=== PATIENT | female | born 1945 | race Caucasian/White ===

== ENCOUNTER 2023-10-27 13:28 | Outpatient (RCR) | payer MEDICARE, SELFPAY | END 2023-10-27 23:59 | disposition home or self-care (01) | LOC: ROT 13:28 | PROVIDERS: ATTENDING PHYSICIAN Psychiatry & Neurology Neurology; FAMILY PHYSICIAN Internal Medicine | DX: G31.84 Mild cognitive impairment of uncertain or unknown etiology (principal) | CPT/HCPCS: 96125; 97167 ==

== ENCOUNTER 2023-11-16 08:10 | Outpatient (RCR) | payer MEDICARE, SELFPAY | END 2023-11-16 23:59 | disposition home or self-care (01) | LOC: ROT 08:10 | PROVIDERS: ATTENDING PHYSICIAN Psychiatry & Neurology Neurology; FAMILY PHYSICIAN Internal Medicine | DX: R41.89 Other symptoms and signs involving cognitive functions and awareness (principal); Z73.6 Limitation of activities due to disability | CPT/HCPCS: 97129; 97130; 97530; 97535 ==

== ENCOUNTER → 2023-12-14 13:58 | Outpatient (REF) | payer MEDICARE, SELFPAY | LOC: RCS 13:58 | PROVIDERS: ATTENDING PHYSICIAN Internal Medicine Cardiovascular Disease; FAMILY PHYSICIAN Internal Medicine; REFERRING PHYSICIAN Psychiatry & Neurology Neurology | DX: R55 Syncope and collapse (principal); G30.9 Alzheimer's disease, unspecified | CPT/HCPCS: 36415; 93306 ==

== ENCOUNTER 2023-12-17 06:40 | Outpatient (RCR) | payer MEDICARE, SELFPAY | END 2023-12-17 11:20 | disposition home or self-care (01) | LOC: ROT 06:40 | PROVIDERS: ATTENDING PHYSICIAN Psychiatry & Neurology Neurology; FAMILY PHYSICIAN Internal Medicine | DX: R41.89 Other symptoms and signs involving cognitive functions and awareness (principal); Z73.6 Limitation of activities due to disability | CPT/HCPCS: 36415; 97129; 97130; 97530; 97535 ==

== ENCOUNTER → 2023-12-28 12:57 | Outpatient (REF) | payer MEDICARE, SELFPAY | LOC: RCS 12:57 | PROVIDERS: ATTENDING PHYSICIAN Internal Medicine Cardiovascular Disease; FAMILY PHYSICIAN Internal Medicine | DX: R55 Syncope and collapse (principal) | CPT/HCPCS: 93225; 93226 ==

== ENCOUNTER → 2024-01-10 08:51 | Outpatient (REF) | payer MEDICARE, SELFPAY ==
[2024-01-10 09:24] LABS: % Basophils 0.7 % (0-2); % Eosinophils 4.9 % (0-6); % Immature Granulocytes 0.3 % (0-0.5); % Lymphocytes 20.8 % (20.5-51.1); % Neutrophils 66.3 % (42.2-75.2); Absolute Basophils 0.1 10^3/uL (0-0.2); Absolute Eosinophils 0.4 10^3/uL (0-0.7); Absolute Lymphocytes 1.5 10^3/uL (1.2-3.4); Absolute Monocytes 0.5 10^3/uL (0.1-0.6); Absolute Neutrophils 4.7 10^3/uL (1.4-6.5); Hematocrit 41.3 % (37.0-47.0); Hemoglobin 14.1 g/dL (12.0-16.0); Mean Corp Hgb Conc. 34.1 g/dL (33.0-37.0); Mean Corpuscular Hgb 30.1 pg (27.0-31.0); Mean Corpuscular Volume 88.1 fL (81.0-99.0); Mean Platelet Volume 9.6 fL (7.4-10.4); Nucleated Red Blood Cells % 0 %; Platelet Count 301 10^3/uL (130-400); Red Blood Cell Count 4.69 10^6/uL (4.20-5.40); Red Cell Dist. Width 13.2 % (11.5-14.5); White Blood Cell Count 7.1 10^3/uL (4.8-10.8)
[2024-01-10 10:01] LABS: ALT (SGPT) 23 U/L (0-35); AST (SGOT) 27 U/L (14-36); Albumin 3.8 g/dl (3.5-5.0); Alkaline Phosphatase 86 U/L (38-126); Blood Urea Nitrogen 23 mg/dl (7-17); Calcium 9.7 mg/dl (8.4-10.2); Carbon Dioxide 29 mmol/L (22-30); Chloride 101 mmol/L (98-107); Glucose 108 mg/dl (70-99); HDL Cholesterol 66 mg/dl; LDL Cholesterol, Calculated 65 mg/dl; Sodium 138 mmol/L (135-145); Total Bilirubin 0.9 mg/dl (0.2-1.3); Total Cholesterol 148 mg/dl (50-199); Total Protein 6.7 g/dl (6.3-8.2); Triglyceride 88 mg/dl (10-149); Very Low Density Lipoprotein 17 mg/dl (0-30); eGFR > 60.00
[2024-01-10 10:24] LABS: TSH Reflex To Free T4 1.76 uIU/ml (0.47-4.68)
[2024-01-10 10:43] LABS: Vitamin B12 > 1000 pg/ml (239-931)
== END ==
LOC: REG 08:51
PROVIDERS: ATTENDING PHYSICIAN Internal Medicine
DX: I10 Essential (primary) hypertension (principal); M06.9 Rheumatoid arthritis, unspecified; E78.00 Pure hypercholesterolemia, unspecified; R53.83 Other fatigue; K21.9 Gastro-esophageal reflux disease without esophagitis
CPT/HCPCS: 36415; 80053; 80061; 82607; 84443; 85025

== ENCOUNTER → 2024-02-01 15:31 | Outpatient (REF) | payer MEDICARE, SELFPAY ==
[2024-02-01 16:12] LABS: % Basophils 0.7 % (0-2); % Eosinophils 4.4 % (0-6); % Immature Granulocytes 0.1 % (0-0.5); % Lymphocytes 14.4 % (20.5-51.1); % Monocytes 5.2 % (1.7-9.3); % Neutrophils 75.2 % (42.2-75.2); Absolute Basophils 0.1 10^3/uL (0-0.2); Absolute Eosinophils 0.4 10^3/uL (0-0.7); Absolute Lymphocytes 1.2 10^3/uL (1.2-3.4); Absolute Monocytes 0.5 10^3/uL (0.1-0.6); Absolute Neutrophils 6.5 10^3/uL (1.4-6.5); Hematocrit 40.1 % (37.0-47.0); Hemoglobin 13.9 g/dL (12.0-16.0); Mean Corp Hgb Conc. 34.7 g/dL (33.0-37.0); Mean Corpuscular Hgb 30.1 pg (27.0-31.0); Mean Corpuscular Volume 86.8 fL (81.0-99.0); Mean Platelet Volume 9.6 fL (7.4-10.4); Nucleated Red Blood Cells % 0 %; Platelet Count 390 10^3/uL (130-400); Red Blood Cell Count 4.62 10^6/uL (4.20-5.40); Red Cell Dist. Width 12.9 % (11.5-14.5); White Blood Cell Count 8.6 10^3/uL (4.8-10.8)
[2024-02-01 16:17] LABS: Erythrocyte Sed Rate 47 mm/hour (0-20)
[2024-02-01 16:37] LABS: ALT (SGPT) 19 U/L (0-35); AST (SGOT) 28 U/L (14-36); Albumin 3.9 g/dl (3.5-5.0); Alkaline Phosphatase 92 U/L (38-126); Blood Urea Nitrogen 25 mg/dl (7-17); Calcium 10.1 mg/dl (8.4-10.2); Carbon Dioxide 25 mmol/L (22-30); Chloride 104 mmol/L (98-107); Glucose 96 mg/dl (70-99); Phosphorus 4.6 mg/dl (2.5-4.5); Potassium 4.4 mmol/L (3.5-5.1); Sodium 136 mmol/L (135-145); Total Bilirubin 0.7 mg/dl (0.2-1.3); Total Protein 7.3 g/dl (6.3-8.2); eGFR > 60.00
[2024-02-01 16:43] LABS: Intact PTH 44.4 pg/ml (13.6-85.8)
[2024-02-01 16:55] LABS: Free T4 1.68 ng/dl (0.78-2.19); Vitamin D, 25-OH*** > 126 ng/mL (30-80)
[2024-02-01 17:08] LABS: TSH 1.34 uIU/ml (0.47-4.68)
[2024-02-01 17:44] LABS: Folate > 20.0 ng/ml (2.76-20); Vitamin B12 > 1000 pg/ml (239-931)
[2024-02-02 15:59] LABS: tTG IgA Antibody 8.8 EU/ml (0-19)
[2024-02-03 05:43] LABS: IgA 444 mg/dl (70-400); IgG 1458 mg/dl (700-1600); IgM 51 mg/dl (40-230)
[2024-02-03 19:32] LABS: % Natural Killer Cells 12 % (5-28); Absolute Natural Killer Cells 139 cells/uL (74-620); CD19 % of Cells (B-cells) 2 % (5-21); CD19 Absolute Count 23 cells/uL (74-510); CD3 % of Cells (Total T-cells) 86 % (62-89); CD3 Absolute Count 993 cells/uL (660-2200); CD4 % of Cells Analyzed 63 % (35-68); CD4 Absolute Count 728 cells/uL (490-1600); CD8 % of Cells Analyzed 21 % (10-46); CD8 Absolute Count 243 cells/uL (150-1050)
[2024-02-04 01:45] LABS: Endomysial IgA Antibody Titer <1:10 (<1:10)
== END ==
LOC: REG 15:31
PROVIDERS: ATTENDING PHYSICIAN Internal Medicine; FAMILY PHYSICIAN Internal Medicine
DX: D80.3 Selective deficiency of immunoglobulin G [IgG] subclasses (principal); G30.9 Alzheimer's disease, unspecified; M05.79 Rheumatoid arthritis with rheumatoid factor of multiple sites without organ or systems involvement; M81.0 Age-related osteoporosis without current pathological fracture; Z51.81 Encounter for therapeutic drug level monitoring; M25.561 Pain in right knee
CPT/HCPCS: 36415; 73564; 80053; 82306; 82607; 82746; 82784; 83516; 83970; 84100; 84155; 84165; 84439; 84443; 85025; 85652; 86140; 86231; 86355; 86357; 86359; 86360

== ENCOUNTER → 2024-03-10 18:55 | Outpatient (REF) | payer MEDICARE, SELFPAY | LOC: MRI 18:55 | PROVIDERS: ATTENDING PHYSICIAN Psychiatry & Neurology Behavioral Neurology & Neuropsychiatry; FAMILY PHYSICIAN Internal Medicine | DX: G30.9 Alzheimer's disease, unspecified (principal) | CPT/HCPCS: 70551 ==

== ENCOUNTER → 2024-04-10 09:14 | Outpatient (REF) | payer MEDICARE, SELFPAY ==
--- NOTE | 2024-03-28 12:37 | WATCHMAN ---
Watchman
Wathcman Procedure
Referred by:: Freeman/Kleber
Date of Referral:: 03/22/24
[id number] Score
Age in Years (65=0, 65-74=1, >/=75=2): > or = 75
Sex (Female=+1): Female
Congestive Heart Failure History (Yes=+1): No
Hypertension History (Yes=+1): Yes
Stroke/TIA/Thromboembolism History (Yes=+2): No
Vascular Disease History (Yes=+1): No
Diabetes Mellitus (Yes=+1): No
Score: 4
Anticoagulation Recommendations: Recommend anticoagulation (as validated in nonvalvular fib)
HASBLED Score
Hypertenstion (uncontrolled >160mmHG systolic): Yes
Renal disease (dialysis, transplant, Cr >2.26mg/dL or >200umol/L): No
Liver disease (cirrhosis or bilirubin >2x normal w/ AST/ALT/AP >3x normal: No
Stroke history: No
Prior major bleeding or predisposition to bleeding: No
Labile INR(unsable/high INRs,time in therapeutic range <60%): No
Age >65: Yes
Medication usage predisposing to bleeding(ASA, NSAIDS): Yes
Alcohol use (>/= 8 drinks/week): No
Score: 3
Risk: Alternatives to anticoagulation should be considered: Patient is at high risk for major bleeding
Electrocardiogram
Interpretation: abnormal
Heart Rate: 54
Rate: bradycardiac
Rhythm: sinus
Physician Visits
Telex Operator:: Kleber
Date of Visit:: 03/22/24
Primary Grease Cup Filler:: freeman
Date of Visit:: 11/18/23
PCP:: Margaret Crawford
Oral Anticoagulation
Post procedure anticoagulation plan:: anticoagulation for another 45 days following the implant and then a follow-up CRISTIAN. If no leak or migration of the device noted, she would still need to be on dual antiplatelet therapy following the implant.
After 6 months of dual antiplatelet therapy, she may go to aspirin alone.
Plan
Plan:: : Consult received for Watchman evaluation from Dr. Shahid.
03/28/2024: Spoke with patient and provided with contact information. Assisted in scheduling her Watchman CT scan for 04/10/2024. Reviewed instructions of nothing to eat or drink for 3 hours prior and to bring a list of medications. Allowed for and
answered questions.
== END ==
LOC: RAD 09:14
PROVIDERS: ATTENDING PHYSICIAN Internal Medicine Cardiovascular Disease; FAMILY PHYSICIAN Internal Medicine
DX: I48.0 Paroxysmal atrial fibrillation (principal)
CPT/HCPCS: 75572; Q9967

== ENCOUNTER 2024-05-02 06:12 | Inpatient (IN) | payer MEDICARE, SELFPAY ==
[2024-05-01 08:32] VITALS: BMI 20.9
[2024-05-01 09:06] LABS: % Basophils 0.7 % (0-2); % Immature Granulocytes 0.3 % (0-0.5); % Lymphocytes 22.2 % (20.5-51.1); % Neutrophils 65.8 % (42.2-75.2); Absolute Basophils 0.1 10^3/uL (0-0.2); Absolute Eosinophils 0.3 10^3/uL (0-0.7); Absolute Lymphocytes 1.6 10^3/uL (1.2-3.4); Absolute Monocytes 0.5 10^3/uL (0.1-0.6); Absolute Neutrophils 4.8 10^3/uL (1.4-6.5); Hematocrit 40.6 % (37.0-47.0); Hemoglobin 13.7 g/dL (12.0-16.0); Mean Corp Hgb Conc. 33.7 g/dL (33.0-37.0); Mean Corpuscular Volume 88.8 fL (81.0-99.0); Mean Platelet Volume 9.9 fL (7.4-10.4); Nucleated Red Blood Cells % 0 %; Platelet Count 355 10^3/uL (130-400); Red Blood Cell Count 4.57 10^6/uL (4.20-5.40); Red Cell Dist. Width 13.2 % (11.5-14.5); White Blood Cell Count 7.3 10^3/uL (4.8-10.8)
[2024-05-01 09:11] LABS: ALT (SGPT) 20 U/L (0-35); AST (SGOT) 21 U/L (14-36); Albumin 3.8 g/dl (3.5-5.0); Alkaline Phosphatase 78 U/L (38-126); Blood Urea Nitrogen 18 mg/dl (7-17); Calcium 9.8 mg/dl (8.4-10.2); Carbon Dioxide 24 mmol/L (22-30); Chloride 106 mmol/L (98-107); Estimated Creatinine Clearance 69 ml/min; Glucose 100 mg/dl (70-99); Potassium 4.1 mmol/L (3.5-5.1); Sodium 138 mmol/L (135-145); Total Bilirubin 0.8 mg/dl (0.2-1.3); Total Protein 6.6 g/dl (6.3-8.2); eGFR > 60.00
[2024-05-01 09:35] LABS: INR 1.49; PT 17.8 Sec (11.4-14.6)
[2024-05-02] VITALS (9 sets, daily range): BP systolic 97–138; BP diastolic 45–93; BMI 20.6
--- NOTE | 2024-05-02 09:03 | WATCHMAN.MD ---
Watchman Implant
-
ELECTROPHYSIOLOGY/INTERVENTIONAL PROCEDURE REPORT
Date of Procedure: May 02, 2024
Referring: Bernabe Mckenzie MD
Assisting Physician: Kin Shahid
PROCEDURES:
1. Left atrial appendage occlusion device using 24 mm WATCHMAN FLX device
2. Ultrasound-guided right common femoral venous access
INDICATION: Atrial fibrillation with indication for chronic anticoagulation however bleeding complication which does not allow for safe long-term anticoagulation.
ACCESS: Right common femoral vein, 16Fr sheath and 9Fr. sheaths, under US guidance using micropunture kit.
HEMODYNAMICS : (mmHg)
LA Pressure: 5
PROCEDURE REPORT:
After informed consent and patient safety 'Timeout' the patient was intubated and sedated by the anesthesiology service. Under ultrasound guidance, the right femoral vein was accessed by Dr. Kin Shahid for transseptal puncture. Concomitant
transesophageal echocardiogram was performed by Dr. Bubba Westbrook
Baseline intracardiac ultrasound demonstrated no pericardial effusion and baseline CRISTIAN images revealed no pericardial effusion.
After ruling out a left atrial appendage thrombus, the patient was heparinized for an ACT between 350-400 seconds and under CRISTIAN and intracardiac ultrasound guidance transseptal puncture was performed by Dr. Radha Mari using AcuQcross in a mid to
inferior position on the inferior-superior axis and a mid position on the anterior-posterior axis. Left atrial pressure was 5 millimeters mercury.
Once transseptal puncture was performed over an Amplatz Super Stiff 0.035 wire parked in the left superior pulmonary vein, the watchman access sheath was advanced into the left atrium sheath. A 5 Barbadian pigtail catheter was placed into the left
atrial appendage and an appendage gram was performed using intravenous contrast dye demonstrating a chicken wing type anatomy that was suitable likely for a 24 mm WATCHMAN FLX device.
After appropriately prepping the device, Dr. Kin Shahid successfully deployed a 24 mm WATCHMAN FLX device. Device showed excellent positioning with no leaks post device deployment. 11 to 16 % compression was noted in the device after deployment.
A 'tug-test' was performed demonstrating stability of the device. Given PASS criteria were met, the device was then released successfully by Dr. Kin Shahid.
Post procedure, CRISTIAN imaging demonstrated no new or worse pericardial effusion. Sheaths and catheters were removed from the left atrium and heparin was reversed using protamine. Catheters removed from the femoral vein with Vascade closure device
used. The patient tolerated the procedure well.
RADIATION SUMMARY: Fluoro Time (min): 5.3, Dose (mGy): 12.39, DAP (Gy.cm2) : 1.54
Closure Device: Vascade closure device
CONCLUSIONS
1. Successful deployment of 24 mm WATCHMAN FLX device under CRISTIAN and ICE guidance.
RECOMMENDATIONS
1. Plan for daily Eliquis 5 mg twice daily along with daily baby aspirin 81 mg for the next 6 weeks.
2. 45-day CRISTIAN post procedure to assess stability of device and rule out any franklin-device leaks.
Copy to: Kin Muro
Radha Mari MD, [facility], [facility]
--- NOTE | 2024-05-02 09:15 | WATCHMAN.MD ---
Watchman Implant
-
Watchman PETTY occlusion device implantation:
Ms. Davis is a 78 years old woman with She has Alzheimer's disease currently treated with Aricept and Namenda who is being evaluated for treatment with subcutaneous injections of Leqembi (Lecanemab) that warrants the discontinuation of
anticoagulation therapy. She is here for Watchman implantation.
Date of Procedure:
05/02/24
Indications:
Recurrent bleeding with anticoagulation therapy for stroke prevention
Pre-Operative Diagnosis:
Atrial fibrillation with high risk of bleeding
Post-Operative Diagnosis:
Atrial fibrillation with high risk of bleeding
Procedure Performed:
Left atrial appendage occlusion with Watchman implantation (24 mm Watchman FLX Pro left atrial appendage closure device)
Performing Physicians:
CRISTIAN: Bubba Westbrook M.D.
Transseptal six pack loader operator: Radha Mari M.D.
Implanter: Kin Shahid M.D.
Anesthesia:
See anesthesia records
Detailed Description of the Procedure:
Written informed consent was obtained from the patient after a full explanation of the risks and benefits of the procedure including the risks of sedation and anesthesia.
The patient was brought to the electrophysiology laboratory in stable condition in fasting state. Continuous electrocardiographic and hemodynamic monitoring was initiated.
The initial rhythm was sinus rhythm.
The procedure site was meticulously prepared with surgical scrub and allowed to dry with no pooling. Sterile draping was applied to cover the procedure site. The image intensifier was draped with sterile bag and positioned over the patient. After
infusion of local anesthetic, vascular access was obtained under ultrasound guidance and sheaths were placed over guide wire as detailed below.
Sheath and Catheter Placement:
Sheaths:
��������������� Watchman delivery sheath through the 16Fr sheath.
��������������� Watchman catheter
Trans-septal Puncture:
Heparin was initiated and infused to maintain appropriate ACT.
A J-tipped guidewire was advanced through the 8-Montenegrin sheath in the right femoral vein into the superior vena cava under fluoroscopic, and CRISTIAN guidance. The 8Fr was upgraded to 16 Fr sheath. The Watchman sheath was advanced into the superior vena
cava over the guide wire. The ACUTUS� AcQCross Qx trans-septal apparatus was used through the Watchman sheath. The apparatus was withdrawn until it was in contact with the fossa ovalis. The position was adjusted based on fluoroscopy and ultrasound
images from CRISTIAN. Under fluoroscopic, hemodynamic and CRISTIAN ultrasound guidance, left atrium was cannulated by advancing the needle. The right atrial and left atrial pressure was monitored through the needle. An Amplatz guide wire was placed and was
advanced into the left superior pulmonary vein. Both the sheath and the dilator was advanced into the left atrium. The dilator with the needle was withdrawn. Blood was aspirated from the sheath and arterial blood confirmed. The sheath was flushed.
Saline injection noted into the left atrium on CRISTIAN. The LA pressure was recorded. The Agilis sheath was removed keeping the wire in place. The Watchman delivery sheath was placed over the Amplatz wire into the LA using a dilator. The dilator and was
removed and the sheath was flushed. The saline injection was noted in the LA on the CRISTIAN. A curved pig tail was advanced over the guide wire into the left atrium and the wire was removed.
Left atrial appendage atriography:
The pigtail was advanced into the PETTY and was confirmed on fluoroscopy and CRISTIAN. The contrast was injected and the PETTY shape was recorded in NELSON /Caudal view (20/20 degrees). The size of the PETTY was again checked and confirmed reviewing the CRISTIAN and
the fluoroscopy along with previously obtained CT scan images.
Watchman Deployment:
The Watchman delivery sheath was advanced into the PETTY over the pigtail till the right marker was at the location of the orifice line marked on the screen. The pigtail was removed and the Watchman delivery system was advanced through the sheath into
the PETTY till it was aligned with the outer sheath marker inside the PETTY. The watchman sheath was clicked with the outer sheath. Once acceptable location achieved, the outer sheath was pulled back keeping the device steady at the PETTY location till a
ball of the device was formed under fluoroscopic guidance. The whole system was advanced further into the PETTY till adequate depth is achieved into the PETTY.� The PETTY occluder was deployed and expanded adequately anchoring to the PETTY. The device was
kept anchored with stable pressure to that location for 10 seconds.
The CRISTIAN image confirmed adequate expansion. The tug test was done that showed the device is anchored well and is not able to come out. The compression was 15% and 12% on the two sides. There was no significant leak noted on the Doppler via CRISTIAN. A
contrast was injected showing adequate location of the device at the mouth of the PETTY and no leak demonstrated.�
The device was deployed by unscrewing the Watchman device and releasing from the connecting wire. The wire was pulled back into the sheath and the sheath was pulled out of the LA.
Implanted device:
WATCHMAN FLX Pro � 24mm
Procedure End
CRISTIAN study was done again that showed no epicardial accumulation that was unchanged from earlier. A repeated images showed no change in the pericardial space. No complications noted.
Following the completion of the deployment, catheters were removed. Protamine 30 mg was given at the end of the procedure and ACT was checked repeatedly. The sheath was removed and hemostasis achieved with VASCADE and manual compression after
acceptable ACT is achieved.
Left atrial Pressure:
Mean LA pressure was 5mmHg
Mean RA pressure was 2mmHg
Estimated Blood loss:
10 cc
Specimens Removed:
None.
Implants / Devices:
None
Urine output:
None
Packs / Drains/ Tubes:
None
Instrument / Sponge Count Correct:
Yes
Complications of the Procedure:
None
Condition of Patient at Time of Transfer:
Hemodynamically stable with no neurological or vascular compromise.
Summary:
Successful implantation of the left atrial occlusion device (WATCHMAN FLX Pro� 24mm)
Post procedure Plan for anticoagulation:
Continue Eliquis 5 mg BID for 45 days.
Based on 6 weeks CRISTIAN, will plan to switch Eliquis to Plavix and ASA.
In six months, will plan to discontinue Plavix and continue ASA 81 mg indefinitely.
--- NOTE | 2024-05-02 13:12 | W.PN.UPDATE ---
Update Note
Progress Note Update
Pt seen post Watchman implant. Right groin site stable, no ht/bleeding. OOB ambulating, urinating without difficulty. Post EKG AFib 90s, no acute changes. Will resume eliquis tonight at usual time and will add aspirin 81mg daily, to start tomorrow.
45 day CRISTIAN arranged for 06/23. Cardiology followup at [facility] arranged. Home later today if groin site/tele remain stable.
--- NOTE | 2024-05-02 16:42 | CM ---
pt prev indep, no dc planning needs noted. dc to home
[2024-05-03 07:50] LABS: ACT-LR - POC > 397 Seconds (116-155)
== END 2024-05-02 12:00 | disposition home or self-care (01) | DRG 274 ==
LOC: CATH-IN 06:12
PROVIDERS: Internal Medicine Cardiovascular Disease; Internal Medicine Interventional Cardiology; ADMITTING PHYSICIAN Internal Medicine Cardiovascular Disease; FAMILY PHYSICIAN Internal Medicine Cardiovascular Disease
PROC: 02L73DK Occlusion of Left Atrial Appendage with Intraluminal Device, Percutaneous Approach (ICD-10-PCS; 2024-05-02)
PROC: B24BZZ4 Ultrasonography of Heart with Aorta, Transesophageal (ICD-10-PCS; 2024-05-02)
DX: I48.0 Paroxysmal atrial fibrillation (principal); Z00.6 Encounter for examination for normal comparison and control in clinical research program; I48.92 Unspecified atrial flutter; I10 Essential (primary) hypertension; R91.1 Solitary pulmonary nodule; M81.0 Age-related osteoporosis without current pathological fracture; M06.9 Rheumatoid arthritis, unspecified; G30.9 Alzheimer's disease, unspecified; F02.80 Dementia in other diseases classified elsewhere, unspecified severity, without behavioral disturbance, psychotic disturbance, mood disturbance, and anxiety; I49.5 Sick sinus syndrome; E78.5 Hyperlipidemia, unspecified; I07.1 Rheumatic tricuspid insufficiency; Z79.01 Long term (current) use of anticoagulants; Z79.899 Other long term (current) drug therapy
CPT/HCPCS: 33340; 36415; 76937; 80053; 85025; 85347; 85610; 86850; 86900; 86901; 93005; 93355; C1760; C1892; C1894

== ENCOUNTER → 2024-06-15 13:02 | Outpatient (REF) | payer MEDICARE, SELFPAY ==
[2024-06-15 15:01] LABS: % Basophils 0.5 % (0-2); % Eosinophils 3.3 % (0-6); % Immature Granulocytes 0.2 % (0-0.5); % Lymphocytes 13.4 % (20.5-51.1); % Monocytes 5.4 % (1.7-9.3); % Neutrophils 77.2 % (42.2-75.2); Absolute Basophils 0.1 10^3/uL (0-0.2); Absolute Eosinophils 0.4 10^3/uL (0-0.7); Absolute Lymphocytes 1.4 10^3/uL (1.2-3.4); Absolute Monocytes 0.6 10^3/uL (0.1-0.6); Absolute Neutrophils 8.1 10^3/uL (1.4-6.5); Hematocrit 39.7 % (37.0-47.0); Hemoglobin 13.3 g/dL (12.0-16.0); Mean Corp Hgb Conc. 33.5 g/dL (33.0-37.0); Mean Corpuscular Hgb 30.2 pg (27.0-31.0); Mean Platelet Volume 9.5 fL (7.4-10.4); Nucleated Red Blood Cells % 0 %; Platelet Count 450 10^3/uL (130-400); Red Blood Cell Count 4.41 10^6/uL (4.20-5.40); Red Cell Dist. Width 13.2 % (11.5-14.5); White Blood Cell Count 10.5 10^3/uL (4.8-10.8)
[2024-06-15 15:31] LABS: ALT (SGPT) 16 U/L (0-35); AST (SGOT) 18 U/L (14-36); Albumin 3.7 g/dl (3.5-5.0); Alkaline Phosphatase 97 U/L (38-126); Blood Urea Nitrogen 28 mg/dl (7-17); Calcium 9.8 mg/dl (8.4-10.2); Carbon Dioxide 25 mmol/L (22-30); Chloride 101 mmol/L (98-107); Glucose 97 mg/dl (70-99); Potassium 4.3 mmol/L (3.5-5.1); Sodium 142 mmol/L (135-145); Total Bilirubin 0.6 mg/dl (0.2-1.3); Total Protein 6.8 g/dl (6.3-8.2); eGFR > 60.00
[2024-06-15 16:04] LABS: Hepatitis B Surface Antigen Negative (Negative)
[2024-06-15 16:17] LABS: Hepatitis B Core Ab, Total Negative (Negative)
[2024-06-15 16:21] LABS: Hepatitis B Surface Antibody Negative; Hepatitis C Antibody Negative (Negative)
[2024-06-15 17:00] LABS: Hepatitis A Antibody, Total Negative (Negative)
== END ==
LOC: REG 13:02
PROVIDERS: ATTENDING PHYSICIAN Internal Medicine; FAMILY PHYSICIAN Internal Medicine
DX: Z51.81 Encounter for therapeutic drug level monitoring (principal)
CPT/HCPCS: 36415; 80053; 85025; 86704; 86706; 86708; 86803; 87340

== ENCOUNTER 2024-06-23 07:10 | Day surgery (SDC) | payer MEDICARE, SELFPAY | END 2024-06-23 09:36 | disposition home or self-care (01) | LOC: CATH 07:10 | PROVIDERS: ATTENDING PHYSICIAN Internal Medicine Cardiovascular Disease; FAMILY PHYSICIAN Internal Medicine | DX: Z45.09 Encounter for adjustment and management of other cardiac device (principal); I08.1 Rheumatic disorders of both mitral and tricuspid valves; I48.0 Paroxysmal atrial fibrillation; I48.92 Unspecified atrial flutter; I47.10 Supraventricular tachycardia, unspecified; Z79.01 Long term (current) use of anticoagulants | CPT/HCPCS: 93312; 93320; 93325; 93005 ==

== ENCOUNTER → 2024-07-04 11:25 | Outpatient (REF) | payer MEDICARE, SELFPAY ==
[2024-07-04 12:24] LABS: % Basophils 0.6 % (0-2); % Eosinophils 1.2 % (0-6); % Immature Granulocytes 0.4 % (0-0.5); % Lymphocytes 9.8 % (20.5-51.1); % Monocytes 6.3 % (1.7-9.3); % Neutrophils 81.7 % (42.2-75.2); Absolute Basophils 0.1 10^3/uL (0-0.2); Absolute Eosinophils 0.1 10^3/uL (0-0.7); Absolute Monocytes 0.7 10^3/uL (0.1-0.6); Absolute Neutrophils 8.6 10^3/uL (1.4-6.5); Hematocrit 38.1 % (37.0-47.0); Hemoglobin 12.8 g/dL (12.0-16.0); Mean Corp Hgb Conc. 33.6 g/dL (33.0-37.0); Mean Corpuscular Hgb 28.8 pg (27.0-31.0); Mean Corpuscular Volume 85.8 fL (81.0-99.0); Mean Platelet Volume 8.9 fL (7.4-10.4); Nucleated Red Blood Cells % 0 %; Platelet Count 518 10^3/uL (130-400); Red Blood Cell Count 4.44 10^6/uL (4.20-5.40); Red Cell Dist. Width 13.3 % (11.5-14.5); White Blood Cell Count 10.5 10^3/uL (4.8-10.8)
[2024-07-04 13:03] LABS: ALT (SGPT) 14 U/L (0-35); AST (SGOT) 21 U/L (14-36); Albumin 3.7 g/dl (3.5-5.0); Alkaline Phosphatase 83 U/L (38-126); Blood Urea Nitrogen 21 mg/dl (7-17); Calcium 9.7 mg/dl (8.4-10.2); Carbon Dioxide 27 mmol/L (22-30); Chloride 101 mmol/L (98-107); Glucose 123 mg/dl (70-99); Potassium 4.3 mmol/L (3.5-5.1); Sodium 143 mmol/L (135-145); Total Bilirubin 0.5 mg/dl (0.2-1.3); Total Protein 6.8 g/dl (6.3-8.2); eGFR > 60.00
[2024-07-04 13:40] LABS: Hepatitis B Surface Antigen Negative (Negative)
[2024-07-04 13:58] LABS: Hepatitis B Core Ab, Total Negative (Negative); Hepatitis B Surface Antibody Negative; Hepatitis C Antibody Negative (Negative)
[2024-07-04 14:37] LABS: Hepatitis A Antibody, Total Negative (Negative)
[2024-07-06 12:25] LABS: Quantiferon Plus TB1 minus NIL 0.01 IU/mL (<=0.34); Quantiferon TB Gold Plus Negative (Negative)
== END ==
LOC: REG 11:25
PROVIDERS: ATTENDING PHYSICIAN Internal Medicine; FAMILY PHYSICIAN Internal Medicine
DX: Z51.81 Encounter for therapeutic drug level monitoring (principal)
CPT/HCPCS: 36415; 80053; 85025; 86480; 86704; 86706; 86708; 86803; 87340

== ENCOUNTER → 2024-07-24 13:16 | Outpatient (REF) | payer MEDICARE, SELFPAY ==
[2024-07-24 15:35] LABS: % Basophils 0.5 % (0-2); % Eosinophils 0.8 % (0-6); % Immature Granulocytes 0.5 % (0-0.5); % Lymphocytes 5.4 % (20.5-51.1); % Monocytes 2.9 % (1.7-9.3); % Neutrophils 89.9 % (42.2-75.2); Absolute Basophils 0.1 10^3/uL (0-0.2); Absolute Eosinophils 0.1 10^3/uL (0-0.7); Absolute Immature Granulocytes 0.1 10^3/uL (0-0.05); Absolute Lymphocytes 0.8 10^3/uL (1.2-3.4); Absolute Monocytes 0.4 10^3/uL (0.1-0.6); Absolute Neutrophils 12.8 10^3/uL (1.4-6.5); Hematocrit 40.9 % (37.0-47.0); Hemoglobin 13.7 g/dL (12.0-16.0); Mean Corp Hgb Conc. 33.5 g/dL (33.0-37.0); Mean Corpuscular Hgb 29.6 pg (27.0-31.0); Mean Corpuscular Volume 88.3 fL (81.0-99.0); Mean Platelet Volume 9.2 fL (7.4-10.4); Nucleated Red Blood Cells % 0 %; Platelet Count 560 10^3/uL (130-400); Red Blood Cell Count 4.63 10^6/uL (4.20-5.40); Red Cell Dist. Width 13.6 % (11.5-14.5); White Blood Cell Count 14.2 10^3/uL (4.8-10.8)
[2024-07-24 15:51] LABS: ALT (SGPT) 13 U/L (0-35); AST (SGOT) 19 U/L (14-36); Albumin 3.9 g/dl (3.5-5.0); Alkaline Phosphatase 94 U/L (38-126); Blood Urea Nitrogen 17 mg/dl (7-17); Calcium 9.8 mg/dl (8.4-10.2); Carbon Dioxide 27 mmol/L (22-30); Chloride 99 mmol/L (98-107); Glucose 109 mg/dl (70-99); Potassium 4.7 mmol/L (3.5-5.1); Sodium 140 mmol/L (135-145); Total Bilirubin 0.7 mg/dl (0.2-1.3); Total Protein 7.2 g/dl (6.3-8.2); eGFR > 60.00
[2024-07-24 16:55] LABS: Erythrocyte Sed Rate 53 mm/hour (0-20)
[2024-07-25 14:55] LABS: Rheumatoid Agglutinin Positive (<10 IU)
[2024-07-25 15:06] LABS: Rheumatoid Agg. Semi-quant 2048 IU
[2024-07-27 08:58] LABS: CCP Antibody IgG/IgA 136 Units (0-19)
== END ==
LOC: REG 13:16
PROVIDERS: ATTENDING PHYSICIAN Internal Medicine Rheumatology; FAMILY PHYSICIAN Internal Medicine
DX: M05.79 Rheumatoid arthritis with rheumatoid factor of multiple sites without organ or systems involvement (principal)
CPT/HCPCS: 36415; 80053; 85025; 85652; 86140; 86200; 86430; 86431

== ENCOUNTER 2024-07-28 20:58 | Emergency (ER) | payer MEDICARE, SELFPAY ==
[2024-07-28 21:01] VITALS: BP 176/88
--- NOTE | 2024-07-28 22:53 | ED.GENMED ---
History of Present Illness
General
Chief Complaint: DVT/Possible Blood Clot
Source: patient and family
Exam Limitations: none
Time Seen by Provider: 07/28/24 22:11
Nursing documentation reviewed up to this point in time: agreed with
History of Present Illness
History of Present Illness:
78-year-old female here for 2 days of right leg swelling. She denies injury. She denies pain. She denies fever or chills. She denies chest pain or shortness of breath.
Past History
Past History
ED Past Medical History: HTN and Hypercholesterolemia
Social History
Tobacco: Non-smoker
Alcohol: None
Drug: None
Personal:
Living: with family
Review of Systems
Review of Systems
Allergies reviewed?: Yes
All Other Systems: ROS reviewed and negative except as documented in HPI and ROS
Constitutional: Denies fever
Respiratory: Denies trouble breathing
Cardiac: Denies chest pain
Musculoskeletal: Reports edema (mild swelling RLE compared to left)
Skin: Reports no symptoms
Neurological: Denies numbness
Phy Exam
Physical Exam
Physical Exam:
GENERAL: No acute distress. A&Ox3.
CONSTITUTIONAL: Afebrile.
EYES: clear, conjunctivae normal
ENMT: moist mucus membranes
RESPIRATORY: Regular respirations, nonlabored, lungs clear.
CARDIOVASCULAR: Regular rate and rhythm, no murmurs, no rubs.
GI: Soft, nontender, normal BS
MUSCULOSKELETAL: No groin lymphadenopathy or swelling. R leg from knee to toes +1 swollen compared to left. Brisk capillary refill, no erythema, no tenderness, full ROM without pain. color normal. Temperature same both feet. Moves with ease. Good
pedal pulses. Well perfused.
SKIN: Warm, dry, pink
PSYCH: Normal mood and affect. Well kept, interactive and appropriate
NEUROLOGIC: Awake, alert and oriented. No focal neurological deficits
Course
Orders/Labs/Results
Orders:
Orders
07/28/24 21:03
US Legs, Right [US Periph Venous LOWER Ext RT] Urgent
Comment:
Reason For Exam: swelling
Vital Signs
Initial and Last Documented VS:
Initial Vital Signs
Temp Pulse Resp BP Pulse Ox
98.3 F 118 20 176/88 98
07/28/24 21:01 07/28/24 21:01 07/28/24 21:01 07/28/24 21:01 07/28/24 21:01
Last Documented Vital Signs
Temp Pulse Resp BP Pulse Ox
98.3 F 81 16 161/94 98
07/28/24 21:01 07/28/24 22:56 07/28/24 22:56 07/28/24 22:56 07/28/24 22:56
MDM/Problems Addressed
Differential Diagnosis Includes:
DVT, venous insufficiency, lymphadenopathy right groin
MDM/Problems Addressed:
78-year-old female here for 2 days of right leg swelling. She denies injury. She denies pain. She denies fever or chills. She denies chest pain or shortness of breath.
Pt has RA received infusions past 2 days of Lecanemab and Actemra. These are not new.
Afebrile, NAD
Ultrasound negative for DVT
No groin lymphadenopathy
Lab work from 07/24 reviewed:
CBC: mild leukocytosis (pt is on prednisone)
CMP w no clinically significant abnormality.
CRP mild elevated
BP 161/94 she has BP cuff at home and will recheck. She typically does not have high BP. Family aware and will keep an eye on it.
Pt daughter who is a pediatric engraver jewelry got on speaker phone, all findings reviewed, all questions answered.
*Critical Care Note
Total Time (30-74mins, 75-104mins- exclusive of procedures): Not Applicable
ED Attending Note
-
Portions of this chart may have been created with voice recognition software.� Occasional wrong word or��sound alike� substitutions may have occurred due to the inherent limitations of voice recognition software.
Discharge Plan
Departure
Patient Disposition: Home (Routine Discharge)
Date of Disposition: 07/28/24
Time of Disposition: 22:49
Patient with high blood pressure during this ER visit?: Yes
Condition: Good
Discharge Problem:
Right leg swelling
Instructions: Swelling
Prescriptions:
No Action
omega 1-bjo-eqz-fish oil [Fish Oil] 1 EACH capsule
1 ea PO DAILY
diltiazem HCl [Cardizem CD] 180 mg Capsule,Extended Release 24hr
180 mg PO DAILY
memantine 10 mg Tablet
10 mg PO BID
melatonin 5 mg Capsule
5 mg PO HS
Eliquis 5 mg Tablet
5 mg PO BID
atorvastatin 20 mg Tablet
20 mg PO DAILY
donepezil [Aricept] 10 mg Tablet
10 mg PO HS
calcium carbonate [Calcium 600] 600 mg calcium (1,500 mg) Tablet
600 mg PO DAILY
cholecalciferol (vitamin D3) 250 mcg (10,000 unit) Capsule
250 mcg PO DAILY
Referrals:
Margaret Crawford MD [Family Provider] - Call in 1-3 days for appt
Activity Restrictions/Additional Instructions:
As we discussed, it is not clear why your leg is swollen.
Your ultrasound is negative for a clot
Your blood work from 07/24 shows nothing worrisome
See your doctor next week for reevaluation if the swelling continues.
Interventions
Interventions:
*Risk Screen - Suicide Last Done: 07/28/24 22:46
*General Assessment Last Done: 07/28/24 21:01
*Neglect/Abuse Screening Last Done: 07/28/24 22:46
ED- Fall Risk Assessment Last Done: 07/28/24 22:59
*ED COVID-19 Vaccine History Last Done: 07/28/24 22:46
*Nursing Disposition Last Done: 07/28/24 22:59
ED- Cardiac Assessment Last Done: 07/28/24 21:40
ED- Pulmonary Assessment Last Done: 07/28/24 21:40
ED-Peripheral Vascular Assessment Last Done: 07/28/24 21:40
ED-Skin Assessment Last Done: 07/28/24 21:40
Discharge Date and Time
Discharge Date/Time: 07/28/24 22:59
Print Language: NEPALESE
[2024-07-28 22:56] VITALS: BP 161/94
== END 2024-07-28 22:59 | disposition home or self-care (01) ==
LOC: EMR 20:58
PROVIDERS: EMERGENCY PHYSICIAN Emergency Medicine; FAMILY PHYSICIAN Internal Medicine
DX: R22.42 Localized swelling, mass and lump, left lower limb (principal); I10 Essential (primary) hypertension; E78.00 Pure hypercholesterolemia, unspecified
CPT/HCPCS: 99284; 93971

== ENCOUNTER → 2024-09-01 14:46 | Outpatient (REF) | payer MEDICARE, SELFPAY ==
[2024-09-01 15:24] LABS: % Basophils 0.4 % (0-2); % Eosinophils 0.4 % (0-6); % Immature Granulocytes 0.3 % (0-0.5); % Lymphocytes 9.8 % (20.5-51.1); % Monocytes 3.2 % (1.7-9.3); % Neutrophils 85.9 % (42.2-75.2); Absolute Lymphocytes 0.9 10^3/uL (1.2-3.4); Absolute Monocytes 0.3 10^3/uL (0.1-0.6); Absolute Neutrophils 8.1 10^3/uL (1.4-6.5); Hematocrit 44.7 % (37.0-47.0); Hemoglobin 14.9 g/dL (12.0-16.0); Mean Corp Hgb Conc. 33.3 g/dL (33.0-37.0); Mean Corpuscular Hgb 29.5 pg (27.0-31.0); Mean Corpuscular Volume 88.5 fL (81.0-99.0); Mean Platelet Volume 8.9 fL (7.4-10.4); Nucleated Red Blood Cells % 0 %; Platelet Count 438 10^3/uL (130-400); Red Blood Cell Count 5.05 10^6/uL (4.20-5.40); Red Cell Dist. Width 14.7 % (11.5-14.5); White Blood Cell Count 9.5 10^3/uL (4.8-10.8)
[2024-09-01 16:10] LABS: ALT (SGPT) 25 U/L (0-35); AST (SGOT) 26 U/L (14-36); Albumin 4.5 g/dl (3.5-5.0); Alkaline Phosphatase 105 U/L (38-126); Blood Urea Nitrogen 20 mg/dl (7-17); Carbon Dioxide 27 mmol/L (22-30); Chloride 102 mmol/L (98-107); Glucose 104 mg/dl (70-99); Potassium 4.3 mmol/L (3.5-5.1); Sodium 142 mmol/L (135-145); Total Bilirubin 0.7 mg/dl (0.2-1.3); Total Protein 7.3 g/dl (6.3-8.2); eGFR > 60.00
[2024-09-01 16:20] LABS: Erythrocyte Sed Rate 29 mm/hour (0-20)
== END ==
LOC: REG 14:46
PROVIDERS: ATTENDING PHYSICIAN Internal Medicine; FAMILY PHYSICIAN Internal Medicine
DX: M05.79 Rheumatoid arthritis with rheumatoid factor of multiple sites without organ or systems involvement (principal)
CPT/HCPCS: 36415; 80053; 85025; 85652; 86140

== ENCOUNTER → 2024-09-14 06:37 | Outpatient (REF) | payer MEDICARE, SELFPAY | LOC: MRI 3T 06:37 | PROVIDERS: ATTENDING PHYSICIAN Psychiatry & Neurology Behavioral Neurology & Neuropsychiatry; FAMILY PHYSICIAN Internal Medicine | DX: G30.9 Alzheimer's disease, unspecified (principal) | CPT/HCPCS: 70551 ==

== ENCOUNTER → 2024-10-08 12:20 | Outpatient (REF) | payer MEDICARE, SELFPAY | LOC: MRI 3T 12:20 | PROVIDERS: ATTENDING PHYSICIAN Psychiatry & Neurology Behavioral Neurology & Neuropsychiatry; FAMILY PHYSICIAN Internal Medicine | DX: G30.9 Alzheimer's disease, unspecified (principal) | CPT/HCPCS: 70551 ==

== ENCOUNTER → 2024-11-10 11:23 | Outpatient (REF) | payer MEDICARE, SELFPAY ==
[2024-11-10 12:44] LABS: % Basophils 0.5 % (0-2); % Eosinophils 3.1 % (0-6); % Immature Granulocytes 0.5 % (0-0.5); % Lymphocytes 12.4 % (20.5-51.1); % Monocytes 5.5 % (1.7-9.3); Absolute Basophils 0.1 10^3/uL (0-0.2); Absolute Eosinophils 0.3 10^3/uL (0-0.7); Absolute Immature Granulocytes 0.1 10^3/uL (0-0.05); Absolute Lymphocytes 1.2 10^3/uL (1.2-3.4); Absolute Monocytes 0.5 10^3/uL (0.1-0.6); Absolute Neutrophils 7.4 10^3/uL (1.4-6.5); Hematocrit 46.5 % (37.0-47.0); Hemoglobin 15.7 g/dL (12.0-16.0); Mean Corp Hgb Conc. 33.8 g/dL (33.0-37.0); Mean Corpuscular Hgb 29.8 pg (27.0-31.0); Mean Corpuscular Volume 88.2 fL (81.0-99.0); Mean Platelet Volume 9.2 fL (7.4-10.4); Nucleated Red Blood Cells % 0 %; Platelet Count 353 10^3/uL (130-400); Red Blood Cell Count 5.27 10^6/uL (4.20-5.40); Red Cell Dist. Width 13.3 % (11.5-14.5); White Blood Cell Count 9.5 10^3/uL (4.8-10.8)
[2024-11-10 13:27] LABS: ALT (SGPT) 38 U/L (0-35); AST (SGOT) 32 U/L (14-36); Albumin 4.2 g/dl (3.5-5.0); Alkaline Phosphatase 93 U/L (38-126); Blood Urea Nitrogen 14 mg/dl (7-17); Calcium 10.6 mg/dl (8.4-10.2); Carbon Dioxide 30 mmol/L (22-30); Chloride 102 mmol/L (98-107); Glucose 111 mg/dl (70-99); Potassium 4.6 mmol/L (3.5-5.1); Sodium 139 mmol/L (135-145); Total Bilirubin 1.4 mg/dl (0.2-1.3); Total Protein 7.1 g/dl (6.3-8.2); eGFR > 60.00
[2024-11-10 14:38] LABS: Erythrocyte Sed Rate 19 mm/hour (0-20)
== END ==
LOC: REG 11:23
PROVIDERS: ATTENDING PHYSICIAN Internal Medicine; FAMILY PHYSICIAN Internal Medicine
DX: M05.79 Rheumatoid arthritis with rheumatoid factor of multiple sites without organ or systems involvement (principal)
CPT/HCPCS: 36415; 80053; 85025; 85652; 86140

== ENCOUNTER → 2024-12-22 15:04 | Outpatient (REF) | payer MEDICARE, SELFPAY | LOC: WDC 15:04 | PROVIDERS: ATTENDING PHYSICIAN Internal Medicine | DX: Z12.39 Encounter for other screening for malignant neoplasm of breast (principal); Z12.31 Encounter for screening mammogram for malignant neoplasm of breast | CPT/HCPCS: 77063; 77067 ==

== ENCOUNTER → 2025-01-18 08:50 | Outpatient (REF) | payer MEDICARE, SELFPAY ==
[2025-01-18 09:45] LABS: Hematocrit 43.9 % (37.0-47.0); Hemoglobin 15.1 g/dL (12.0-16.0); Mean Corp Hgb Conc. 34.4 g/dL (33.0-37.0); Mean Corpuscular Volume 87.3 fL (81.0-99.0); Mean Platelet Volume 9.1 fL (7.4-10.4); Platelet Count 290 10^3/uL (130-400); Red Blood Cell Count 5.03 10^6/uL (4.20-5.40); Red Cell Dist. Width 13.4 % (11.5-14.5); White Blood Cell Count 3.1 10^3/uL (4.8-10.8)
[2025-01-18 09:49] LABS: Erythrocyte Sed Rate 8 mm/hour (0-20)
[2025-01-18 10:24] LABS: % Basophils 1.6 % (0-2); % Eosinophils 13.1 % (0-6); % Lymphocytes 33.4 % (20.5-51.1); % Monocytes 9.6 % (1.7-9.3); % Neutrophils 42.3 % (42.2-75.2); Absolute Basophils 0.1 10^3/uL (0-0.2); Absolute Eosinophils 0.4 10^3/uL (0-0.7); Absolute Lymphocytes 1.1 10^3/uL (1.2-3.4); Absolute Monocytes 0.3 10^3/uL (0.1-0.6); Absolute Neutrophils 1.3 10^3/uL (1.4-6.5); Nucleated Red Blood Cells % 0 %
[2025-01-18 11:34] LABS: ALT (SGPT) 22 U/L (0-35); AST (SGOT) 27 U/L (14-36); Albumin 3.9 g/dl (3.5-5.0); Alkaline Phosphatase 71 U/L (38-126); Blood Urea Nitrogen 17 mg/dl (7-17); Calcium 9.8 mg/dl (8.4-10.2); Carbon Dioxide 27 mmol/L (22-30); Chloride 107 mmol/L (98-107); Glucose 102 mg/dl (70-99); HDL Cholesterol 70 mg/dl; LDL Cholesterol, Calculated 93 mg/dl; Potassium 4.5 mmol/L (3.5-5.1); Sodium 141 mmol/L (135-145); Total Cholesterol 176 mg/dl (50-199); Total Protein 6.5 g/dl (6.3-8.2); Triglyceride 67 mg/dl (10-149); Very Low Density Lipoprotein 13 mg/dl (0-30); eGFR > 60.00
[2025-01-18 11:57] LABS: TSH Reflex To Free T4 1.61 uIU/ml (0.47-4.68)
[2025-01-18 12:25] LABS: C-Reactive Protein < 5.00 mg/L (0.0-10.00)
== END ==
LOC: REG 08:50
PROVIDERS: ATTENDING PHYSICIAN Internal Medicine; FAMILY PHYSICIAN Internal Medicine
DX: E78.00 Pure hypercholesterolemia, unspecified (principal); R53.83 Other fatigue; E78.5 Hyperlipidemia, unspecified; M05.79 Rheumatoid arthritis with rheumatoid factor of multiple sites without organ or systems involvement; Z51.81 Encounter for therapeutic drug level monitoring
CPT/HCPCS: 36415; 80053; 80061; 84443; 85025; 85652; 86140

== ENCOUNTER → 2025-04-10 08:04 | Outpatient (REF) | payer MEDICARE, SELFPAY ==
[2025-04-10 08:58] LABS: Hematocrit 42.9 % (37.0-47.0); Hemoglobin 14.7 g/dL (12.0-16.0); Mean Corp Hgb Conc. 34.3 g/dL (33.0-37.0); Mean Corpuscular Volume 89.6 fL (81.0-99.0); Nucleated Red Blood Cells % 0 %; Platelet Count 246 10^3/uL (130-400); Red Cell Dist. Width 12.9 % (11.5-14.5)
[2025-04-10 09:42] LABS: ALT (SGPT) 24 U/L (0-35); AST (SGOT) 20 U/L (14-36); Albumin 4.2 g/dl (3.5-5.0); Alkaline Phosphatase 73 U/L (38-126); Blood Urea Nitrogen 23 mg/dl (7-17); Calcium 9.9 mg/dl (8.4-10.2); Carbon Dioxide 26 mmol/L (22-30); Chloride 107 mmol/L (98-107); Glucose 106 mg/dl (70-99); HDL Cholesterol 64 mg/dl; LDL Cholesterol, Calculated 85 mg/dl; Potassium 4.2 mmol/L (3.5-5.1); Sodium 140 mmol/L (135-145); Total Protein 6.9 g/dl (6.3-8.2); Very Low Density Lipoprotein 15 mg/dl (0-30); eGFR > 60.00
[2025-04-10 09:43] LABS: C-Reactive Protein 13.10 mg/L (0.0-10.00)
== END ==
LOC: REG 08:04
PROVIDERS: ATTENDING PHYSICIAN Internal Medicine; FAMILY PHYSICIAN Internal Medicine
DX: E78.5 Hyperlipidemia, unspecified (principal); M05.79 Rheumatoid arthritis with rheumatoid factor of multiple sites without organ or systems involvement; Z51.81 Encounter for therapeutic drug level monitoring
CPT/HCPCS: 36415; 80053; 80061; 85025; 85652; 86140

== ENCOUNTER 2025-04-20 12:38 | Outpatient (RCR) | payer MEDICARE, SELFPAY ==
[2025-04-20 12:50] VITALS: BP 151/97
[2025-04-20] MEDS: LEQEMBI 255.76 MG IV ×2 (13:17)
[2025-04-20 14:55] VITALS: BP 140/58
== END 2025-04-23 11:02 | disposition home or self-care (01) ==
LOC: OID 12:38
PROVIDERS: ATTENDING PHYSICIAN Psychiatry & Neurology Behavioral Neurology & Neuropsychiatry; FAMILY PHYSICIAN Internal Medicine
DX: G30.9 Alzheimer's disease, unspecified (principal); Z00.6 Encounter for examination for normal comparison and control in clinical research program
CPT/HCPCS: 96365; J0174

== ENCOUNTER 2025-05-18 12:47 | Outpatient (RCR) | payer MEDICARE, SELFPAY ==
[2025-05-04] MEDS: LEQEMBI 255.77 MG IV (13:29)
[2025-05-04 13:38] VITALS: BP 146/67
[2025-05-18 13:00] VITALS: BP 134/66
[2025-05-18] MEDS: LEQEMBI 255.82 MG IV (13:27)
[2025-05-18 14:55] VITALS: BP 160/75
== END 2025-05-27 23:59 | disposition home or self-care (01) ==
LOC: OID 12:47
PROVIDERS: ATTENDING PHYSICIAN Psychiatry & Neurology Behavioral Neurology & Neuropsychiatry; FAMILY PHYSICIAN Internal Medicine
DX: G30.9 Alzheimer's disease, unspecified (principal); Z00.6 Encounter for examination for normal comparison and control in clinical research program
CPT/HCPCS: 96365; J0174

== ENCOUNTER 2025-06-15 12:57 | Outpatient (RCR) | payer MEDICARE, SELFPAY ==
[2025-06-01 13:02] VITALS: BP 142/68
[2025-06-01] MEDS: LEQEMBI 255.8 MG IV (13:14)
[2025-06-15] MEDS: LEQEMBI 255.8 MG IV (13:19)
[2025-06-15 13:23] VITALS: BP 160/65
[2025-06-15 14:30] VITALS: BP 142/67
== END 2025-06-18 09:38 | disposition home or self-care (01) ==
LOC: OID 12:57
PROVIDERS: ATTENDING PHYSICIAN Psychiatry & Neurology Behavioral Neurology & Neuropsychiatry; FAMILY PHYSICIAN Internal Medicine
DX: G30.9 Alzheimer's disease, unspecified (principal); Z00.6 Encounter for examination for normal comparison and control in clinical research program
CPT/HCPCS: 96365; J0174

== ENCOUNTER 2025-07-27 12:50 | Outpatient (RCR) | payer MEDICARE, SELFPAY ==
[2025-06-29] MEDS: LEQEMBI 255.8 MG IV (13:22)
[2025-06-29 13:25] VITALS: BP 143/70
[2025-06-29 14:30] VITALS: BP 148/85
[2025-07-13] MEDS: LEQEMBI 255.8 MG IV (13:15)
[2025-07-13 13:18] VITALS: BP 151/56
[2025-07-13 15:10] VITALS: BP 141/62
[2025-07-27 13:00] VITALS: BP 151/71
[2025-07-27] MEDS: LEQEMBI 255.8 MG IV (13:20)
== END 2025-07-27 23:59 | disposition home or self-care (01) ==
LOC: OID 12:50
PROVIDERS: ATTENDING PHYSICIAN Psychiatry & Neurology Behavioral Neurology & Neuropsychiatry; FAMILY PHYSICIAN Internal Medicine
DX: G30.9 Alzheimer's disease, unspecified (principal); Z00.6 Encounter for examination for normal comparison and control in clinical research program
CPT/HCPCS: 96365; J0174

== ENCOUNTER 2025-08-10 06:21 | Day surgery (SDC) | payer MEDICARE, SELFPAY | END 2025-08-10 15:01 | disposition home or self-care (01) | LOC: GI 06:21 | PROVIDERS: ATTENDING PHYSICIAN Specialist | DX: Z12.11 Encounter for screening for malignant neoplasm of colon (principal); Z86.0101 Personal history of adenomatous and serrated colon polyps; K57.30 Diverticulosis of large intestine without perforation or abscess without bleeding; K31.A0 Gastric intestinal metaplasia, unspecified; K29.60 Other gastritis without bleeding; K29.50 Unspecified chronic gastritis without bleeding | CPT/HCPCS: 43239; G0105; 88305 ==

== ENCOUNTER 2025-08-17 13:05 | Outpatient (RCR) | payer MEDICARE, SELFPAY ==
[2025-08-17] MEDS: LEQEMBI 255.8 MG IV (13:30)
[2025-08-17 13:34] VITALS: BP 160/72
== END 2025-08-20 10:27 | disposition home or self-care (01) ==
LOC: OID 13:05
PROVIDERS: ATTENDING PHYSICIAN Psychiatry & Neurology Behavioral Neurology & Neuropsychiatry; FAMILY PHYSICIAN Internal Medicine
DX: G30.9 Alzheimer's disease, unspecified (principal); Z00.6 Encounter for examination for normal comparison and control in clinical research program
CPT/HCPCS: 96365; J0174

== ENCOUNTER 2025-09-14 12:59 | Outpatient (RCR) | payer MEDICARE, SELFPAY ==
[2025-08-31] MEDS: LEQEMBI 255.8 MG IV (14:18)
[2025-08-31 14:20] VITALS: BP 147/80
[2025-08-31 15:23] LABS: Hematocrit 42.4 % (37.0-47.0); Hemoglobin 14.4 g/dL (12.0-16.0); Mean Corp Hgb Conc. 34.0 g/dL (33.0-37.0); Mean Corpuscular Volume 87.8 fL (81.0-99.0); Nucleated Red Blood Cells % 0 %; Platelet Count 326 10^3/uL (130-400); Red Cell Dist. Width 13.2 % (11.5-14.5)
[2025-08-31 15:35] LABS: C-Reactive Protein < 5.00 mg/L (0.0-10.00)
[2025-09-14 13:05] VITALS: BP 134/92
[2025-09-14 13:19] VITALS: BP 144/101
[2025-09-14 13:26] VITALS: BP 145/80
[2025-09-14 13:30] VITALS: BP 175/114
--- NOTE | 2025-09-14 15:27 | RR ---
A Rapid Response was called on this patient. Patient arrived with elevated BP and irregular heart rate. Debi Caruso SOFTWARE DEPLOYMENT ENGINEER to bedside, applied pvc monitor. 20g IV placed right forearm. Pt to ER for further evaluation.
== END 2025-09-24 13:25 | disposition home or self-care (01) ==
LOC: OID 12:59
PROVIDERS: ATTENDING PHYSICIAN Psychiatry & Neurology Behavioral Neurology & Neuropsychiatry; FAMILY PHYSICIAN Internal Medicine; REFERRING PHYSICIAN Internal Medicine
DX: G30.9 Alzheimer's disease, unspecified (principal); Z00.6 Encounter for examination for normal comparison and control in clinical research program; M05.79 Rheumatoid arthritis with rheumatoid factor of multiple sites without organ or systems involvement
CPT/HCPCS: 36415; 85025; 85652; 86140; 96365; J0174

== ENCOUNTER 2025-09-14 13:37 | Emergency (ER) | payer MEDICARE, SELFPAY ==
[2025-09-14 13:44] VITALS: BP 187/128
[2025-09-14 14:05] LABS: Hematocrit 42.9 % (37.0-47.0); Hemoglobin 14.8 g/dL (12.0-16.0); Mean Corp Hgb Conc. 34.5 g/dL (33.0-37.0); Mean Corpuscular Volume 87.6 fL (81.0-99.0); Nucleated Red Blood Cells % 0 %; Platelet Count 381 10^3/uL (130-400); Red Cell Dist. Width 12.9 % (11.5-14.5)
[2025-09-14 14:51] LABS: ALT (SGPT) 26 U/L (0-35); AST (SGOT) 29 U/L (14-36); Albumin 4.3 g/dl (3.5-5.0); Alkaline Phosphatase 94 U/L (38-126); Blood Urea Nitrogen 18 mg/dl (7-17); Calcium 9.6 mg/dl (8.4-10.2); Carbon Dioxide 23 mmol/L (22-30); Chloride 107 mmol/L (98-107); Glucose 85 mg/dl (70-99); Potassium 3.9 mmol/L (3.5-5.1); Sodium 137 mmol/L (135-145); Total Protein 7.1 g/dl (6.3-8.2); eGFR > 60.00
--- NOTE | 2025-09-14 18:58 | ED.GENMED ---
History of Present Illness
General
Chief Complaint: Heart Rate Problem
Source: patient
Exam Limitations: none
Time Seen by Provider: 09/14/25 18:33
History of Present Illness
History of Present Illness:
80-year-old female with history of dementia, A-fib, status post watchman's on Plavix presents from the outpatient infusion center. She was due for her infusion for her dementia and they noticed upon triage that her heart rate was fast. Patient
drove herself to the appointment. She had no complaints of chest pain rapid heartbeat shortness of breath or lightheadedness. She is been waiting in the waiting room and since being here she states she still has no complaints.
Past History
Past History
ED Past Medical History: HTN and Hypercholesterolemia
Social History
Tobacco: Non-smoker
Alcohol: None
Drug: None
Personal:
Living: with family
Phy Exam
Physical Exam
Physical Exam:
General: Well-appearing female nontoxic no acute respiratory distress
HEENT: Normal cephalic atraumatic
Heart: Regular rate and rhythm lungs: Clear no wheeze
Extremities: No cyanosis or edema
Course
Orders/Labs/Results
Orders:
Orders
09/14/25 13:38
Electrocardiogram (*1) Urgent
Reason for Study: Chest Pain
EKG- Treatment ONCE
09/14/25 13:52
Complete Blood Count/With Diff Urgent
Comprehensive Metabolic Panel Urgent
09/14/25 18:48
Electrocardiogram (*1) Urgent
Reason for Study: Palpitations
EKG- Treatment ONCE
Abnormal Lab Results
09/14/25
13:52
Eosinophils % 6.9 H %
(0-6)
BUN 18 H mg/dl
(7-17)
09/14/25 13:52
09/14/25 13:52
Vital Signs
Initial and Last Documented VS:
Initial Vital Signs
Temp Pulse Resp BP Pulse Ox
98.0 F 140 19 187/128 97
09/14/25 13:44 09/14/25 13:44 09/14/25 13:44 09/14/25 13:44 09/14/25 13:44
Last Documented Vital Signs
Temp Pulse Resp BP Pulse Ox
98.0 F 58 17 187/128 98
09/14/25 13:44 09/14/25 19:00 09/14/25 19:00 09/14/25 13:44 09/14/25 19:00
MDM/Problems Addressed
Differential Diagnosis Includes:
Patient sent in for rapid heart rate noticed at outpatient infusion center. Initial EKG demonstrated atrial flutter with variable block and a rate of 122.
Patient has no complaints. Upon entering the room, she was placed on the dough brake machine operator which demonstrates sinus rhythm with a rate in the low 60s. Repeat EKG confirms sinus bradycardia actually with a rate of 58 no ischemic changes
Discussed with patient's daughter who is a pediatric budget record clerk in [place]. This conversation had taken place over the telephone. Will reach out to cardiology for the recommendation but I anticipate she will be stable for discharge
*Pulse Oximetry
SaO2: 98
Patient hypoxic: no
*Critical Care Note
Total Time (30-74mins, 75-104mins- exclusive of procedures): Not Applicable
Update Note
Update Note:
Repeat EKG confirms sinus bradycardia. Spoke with cardiology who is made aware the patient's history. At this point no indication for any intervention. Would not recommend going up on diltiazem as she runs a lower heart rate when she is out of
flutter. She will follow-up with her chlorine operator as planned at the end of the month. I relayed this to the daughter over the telephone as well.
ED Attending Note
-
Portions of this chart may have been created with voice recognition software.� Occasional wrong word or��sound alike� substitutions may have occurred due to the inherent limitations of voice recognition software.
Discharge Plan
Departure
Patient Disposition: Home (Routine Discharge)
Date of Disposition: 09/14/25
Time of Disposition: 19:15
Patient with high blood pressure during this ER visit?: No
Discharge Problem:
Atrial flutter
Instructions: Atrial Fibrillation (DC)
Prescriptions:
No Action
diltiazem HCl [Cardizem CD] 180 mg Capsule,Extended Release 24hr
180 mg PO DAILY
memantine 10 mg Tablet
10 mg PO BID
melatonin 5 mg Capsule
5 mg PO HS
atorvastatin 20 mg Tablet
20 mg PO DAILY
donepezil [Aricept] 10 mg Tablet
10 mg PO HS
sertraline 25 mg Tablet
25 mg PO DAILY
Leqembi 100 mg/mL Solution
580 mg IV Q2W
Referrals:
Margaret Crawford MD [Family Provider, Internal Medicine]
Activity Restrictions/Additional Instructions:
Continue current medication regimen. Return here if needed otherwise follow-up with your chlorine operator as planned
Interventions
Interventions:
*General Assessment Last Done: 09/14/25 13:46
*Neglect/Abuse Screening Last Done: 09/14/25 13:46
*ED COVID-19 Vaccine History Last Done: 09/14/25 13:46
*ED Influenza Vaccine History Last Done: 09/14/25 13:46
[facility] Fall Risk Assessment Tool Last Done: 09/14/25 18:55
*Risk Screen - Suicide (C-SSRS) Last Done: 09/14/25 13:46
ED- Cardiac Assessment Last Done: 09/14/25 18:53
ED- Pulmonary Assessment Last Done: 09/14/25 18:53
Discharge Date and Time
Print Language: ICELANDIC
--- NOTE | 2025-09-17 08:56 | PTCARENOTE ---
Patient was seen at bedside in OID due to tachycardia and HTN on 09/14. HR 140s and BP 140/115. Denies any symptoms. here today for lequembi infusion for dementia. Patient monitored for about 15 minutes and HR was irregular and sporadic ranging
from 50s-140s. Rapid response call and transfered to ER. Spoke with daughter who is pediatric physician. Has f/u appt with cardiology at end of month. Will f/u with neurology regarding missed dose as patient not treated today. Review of chart
revealed patient with hx of afib and recent watchman procedure on plavix. Thanked me for the call and was provided our contact. Advised should receive clearance from cardiology and neurology prior to next treatment.
== END 2025-09-14 19:38 | disposition home or self-care (01) ==
LOC: EMR 13:37
PROVIDERS: Emergency Medicine; EMERGENCY PHYSICIAN Student in an Organized Health Care Education/Training Program; FAMILY PHYSICIAN Internal Medicine
DX: I48.92 Unspecified atrial flutter (principal); R00.1 Bradycardia, unspecified; F03.90 Unspecified dementia, unspecified severity, without behavioral disturbance, psychotic disturbance, mood disturbance, and anxiety; E78.00 Pure hypercholesterolemia, unspecified; I10 Essential (primary) hypertension; Z79.02 Long term (current) use of antithrombotics/antiplatelets
CPT/HCPCS: 99284; 80053; 85025; 93005